=== PATIENT | female | born 1950 | race Caucasian/White ===

== ENCOUNTER 2016-08-03 09:39 | Emergency (ER) | payer OTHER, SELFPAY ==
[2016-08-03 10:49] LABS: HEMOGLOBIN 13.8 gm/dl (12.3-15.3); RED BLOOD COUNT 4.38 M/UL (4.00-5.10); WHITE BLOOD COUNT 8.7 K/UL (4.5-11.0)
== END 2016-08-03 15:00 | disposition home or self-care (01) ==
LOC: ER1 09:39
PROVIDERS: Physician Assistant
DX: I82.812 Embolism and thrombosis of superficial veins of left lower extremity (principal); I10 Essential (primary) hypertension; E78.5 Hyperlipidemia, unspecified; Z79.899 Other long term (current) drug therapy
CPT/HCPCS: 36415; 80053; 85025; 85379; 85610; 85730; 93971; 99284

== ENCOUNTER 2016-08-03 18:19 | Emergency (ER) | payer OTHER | END 2016-08-03 20:00 | disposition left against medical advice (07) | LOC: ER1 18:19 | DX: Z53.21 Procedure and treatment not carried out due to patient leaving prior to being seen by health care provider (principal) ==